=== PATIENT | female | born 1970 | race Caucasian/White ===

== ENCOUNTER → 2018-07-04 14:59 | Outpatient (CLI) | payer OTHER, MEDICAID, SELFPAY ==
[2018-07-04 16:15] LABS: Ethanol (ETOH) < 10 mg/dL
== END ==
PROVIDERS: Visit Provider Physician Assistant
DX: Z02.83 Encounter for blood-alcohol and blood-drug test (principal); Z04.89 Encounter for examination and observation for other specified reasons; R82.5 Elevated urine levels of drugs, medicaments and biological substances
CPT/HCPCS: 36415; 80320; 80361

== ENCOUNTER → 2019-03-21 12:47 | Outpatient (CLI) | payer OTHER, MEDICAID, SELFPAY ==
--- NOTE | 2019-03-21 | DI.MG.S_ITS ---
BILATERAL DIGITAL DIAGNOSTIC MAMMOGRAM 3D/2D WITH AUGMENTATION: 03/21/2019 CLINICAL: BREAST LUMP. Comparison is made to exams dated: 03/24/2015 mammogram - [facility], 11/27/2006 mammogram [facility], and 03/11/2003 mammogram - [facility]. The tissue of both breasts is heterogeneously dense. This may lower the sensitivity of mammography. No significant masses, calcifications, or other findings are seen in either breast. IMPRESSION: INCOMPLETE: NEEDS ADDITIONAL IMAGING EVALUATION There is no abnormality seen in the right breast to correspond with the area of clinical concern and palpable abnormality in the upper outer quadrant, however, ultrasound is recommended. The implants are intact and have a stable appearance. The recommended breast ultrasound is scheduled to immediately follow this examination. This exam was interpreted at Station ID: [id number]. NOTE: For mammograms, a report in lay terms will be sent to the patient. Approximately 15% of breast malignancies will not be visualized mammographically. In the management of a palpable breast mass, a negative mammogram must not discourage biopsy of a clinically suspicious lesion. Electronically Signed By: Art Ardon M.D. aty/:03/21/2019 13:54:59 copy to: Becca Quezada M.D., [employer], ph: [phone], fax: [phone] ACR BI-RADS Category 0: Incomplete 3340F
--- NOTE | 2019-03-21 12:52 | DI.US.S_ITS ---
ULTRASOUND OF RIGHT BREAST: 03/21/2019 CLINICAL: Palpable right breast lumps. Comparison is made to exams dated: 03/21/2019 [facility], 03/24/2015 ultrasound, 03/24/2015 mammogram [facility], and 11/27/2006 [facility]. Real-time ultrasound of the right breast was performed. Castro scale images of the real-time examination were reviewed. No significant abnormalities were seen sonographically in the right breast. Intact right breast implant with several folds noted. No abnormal intracapsular or extracapsular fluid collections. IMPRESSION: BENIGN There is no sonographic evidence of malignancy. There is no abnormality seen in the right breast to correspond with the area of clinical concern and palpable abnormality at 9 o'clock. The right implant is intact and demonstrates several folds at area of palpable concern. No intracapsular or extracapsular fluid collections to suggest implant rupture. Recommend clinical follow up for persistent symptoms. A 1 year screening mammogram is recommended. This exam was interpreted at Station ID: [id number]. Electronically Signed By: Art Ardon M.D. aty/:03/21/2019 14:56:23 copy to: Becca Quezada M.D., [facility] [employer], ph: [phone], fax: [phone] letter sent: Normal Exam Ultrasound BI-RADS: 2 Benign
== END ==
PROVIDERS: Family Provider Family Medicine; PCP Family Medicine; Visit Provider Family Medicine
DX: R92.8 Other abnormal and inconclusive findings on diagnostic imaging of breast (principal); Z98.82 Breast implant status
CPT/HCPCS: 76642; 77066; G0279

== ENCOUNTER → 2019-04-15 14:35 | Outpatient (CLI) | payer OTHER, MEDICAID, SELFPAY ==
--- NOTE | 2019-04-15 14:37 | DI.RAD.S_ITS ---
PROCEDURE: XR CHEST 2V INDICATIONS: diffuse lymphadenopathy TECHNIQUE: 2 views of the chest were acquired. COMPARISON: None. FINDINGS: Surgical changes and devices: None. Lungs and pleura: Lungs are clear. No pleural effusions or pneumothorax. Mediastinum: Mediastinal contours are normal. Heart size is normal. Bones and chest wall: No suspicious bony abnormalities. Soft tissues appear unremarkable. IMPRESSION: No acute disease Dictated by: Lam White M.D. on 04/15/2019 at 15:34 Approved by: Lam White M.D. on 04/15/2019 at 15:35
[2019-04-15 15:53] LABS: Cholesterol 180 mg/dL (140-199); Glucose 122 mg/dL (70-100); HDL Cholesterol 58 mg/dL (40-60); LDL Cholesterol Calculated 109 mg/dL (<100); Triglycerides 63 mg/dL (35-150)
[2019-04-15 15:57] LABS: Hematocrit 36.4 % (36-46); Hemoglobin 12.6 g/dL (12.0-16.0); Mean Corpuscular HGB Conc 34.5 % (30-36); Mean Corpuscular Hemoglobin 32.2 PG (26-34); Mean Corpuscular Volume 93.1 fL (80-100); Platelet Count 163 X10^3/uL (150-400); Red Blood Cell Count 3.91 X10^6/uL (4.0-5.2); Red Cell Distribution Width 13.2 % (11.6-14.8); White Blood Cell Count 5.6 X10^3/uL (4.5-11.0)
[2019-04-15 15:59] LABS: Neutrophils Absolute Manual 2688 /uL (3000-5900); RBC Morphology Normal Morphology; Reactive Lymphocytes 2+; Total Cells Counted 100
[2019-04-18 11:06] LABS: Hemoglobin A1C% w Est Avg Glu 5.6 % (4.0-6.0)
[2019-04-19 15:54] LABS: HIV-1/2 confirmation Not Detected (Not detected)
== END ==
PROVIDERS: PCP Family Medicine; Visit Provider Family Medicine
DX: Z13.220 Encounter for screening for lipoid disorders (principal); Z13.1 Encounter for screening for diabetes mellitus; R59.1 Generalized enlarged lymph nodes; B19.20 Unspecified viral hepatitis C without hepatic coma; F11.10 Opioid abuse, uncomplicated; R73.9 Hyperglycemia, unspecified
CPT/HCPCS: 36415; 71046; 80061; 82947; 83036; 85025; 87522; 87535

== ENCOUNTER → 2019-05-22 08:22 | Outpatient (CLI) | payer OTHER, MEDICAID, SELFPAY ==
--- NOTE | 2019-05-22 08:23 | DI.US.S_ITS ---
PROCEDURE: US SOFT TISSUE HEAD AND NECK INDICATIONS: ENLARGED LYMPH NODES TECHNIQUE: Real-time scanning was performed of the neck region of interest, with image documentation. COMPARISON: None. FINDINGS: Normal appearance of the submandibular gland bilaterally and there are multiple morphologically normal appearing lymph nodes corresponding to the palpable abnormalities. Within the posterior neck, a palpable abnormality corresponds to a bony prominence. IMPRESSION: 1. Normal appearance of the submandibular glands bilaterally and bilateral normal-appearing lymph nodes. Dictated by: Eduardo FRANK Interpreted: Hadley Paz MD on 05/22/2019 at 11:06 Approved by: Hadely Paz M.D. on 05/22/2019 at 12:00
== END ==
PROVIDERS: PCP Family Medicine; Visit Provider Family Medicine
DX: R59.0 Localized enlarged lymph nodes (principal)
CPT/HCPCS: 76536

== ENCOUNTER 2020-01-08 12:52 | Emergency (ER) | payer OTHER, MEDICAID, SELFPAY ==
[2020-01-08 13:07] VITALS: BP 140/94; PULSE 89; RESP 20; O2SAT 97
--- NOTE | 2020-01-08 13:29 | PC.NURSE ---
left facial droop. left eyebrow and forehead paralysis. pt was diagnosed with Coreas's Palsy. pt is requesting medication for her Coreas's Palsy since she never got them filled in [place]
--- NOTE | 2020-01-08 14:15 | ED.NEUROSD ---
HPI - Neuro Symptoms/Deficit <LORIN Evans - Last Filed: 01/08/20 18:39> General Chief Complaint: Neuro Symptoms/Deficit Stated Complaint: half of face is paralyzed/needs medication Time Seen by Provider: 01/08/20 13:21 Source: patient Mode of arrival: Ambulatory Limitations: no limitations History of Present Illness HPI Narrative: The patient is a 49-year-old female former smoker with history of heroin and alcohol abuse who presents with a chief complaint of needing medications refilled. She states that she was recently in [place] for fiber 6 weeks. She was seen at [facility], for facial paralysis of her left side. She was admitted to the hospital, diagnosed with Coreas's palsy. She was given prescriptions, but was unable to fill her acyclovir due to cost outside of the state. She states that her insurance would not cover it is well outside of the [facility]. She presents to the emergency department requesting this medication. She states that she had a thorough evaluation in [place], including CTs, MRIs etcetera. She is also concerned about her blood pressure as well. She has been on clonidine before she states for blood pressure or anxiety or detox. She states that she has been out of that medication for 4 weeks prior to her trip, then she was given a 5 day prescription when she was discharged from [facility] in [place]. She states that her Croeas's palsy is the same, she denies any focal weakness or any other complaints. On Anticoagulants: No Related Data Previous Rx's Medication Instructions Recorded triamcinolone acetonide 0.5 % 1 applictn TOP BID #15 gram 10/24/18 topical ointment valacyclovir 1,000 mg PO TID 7 Days #21 tab 01/08/20 Allergies Allergy/AdvReac Type Severity Reaction Status Date / Time cephalexin [CEPHALEXIN] Allergy Unknown Verified 05/21/19 14:07 hydrocodone [HYDROCODONE] Allergy Unknown Verified 05/21/19 14:07 Review of Systems <LORIN Evans - Last Filed: 01/08/20 18:39> Review of Systems Narrative: GENERAL: Denies chills, fatigue, malaise, fever, sweats. HEENT: Denies sinus pain, ear pain, sore throat, difficulty swallowing, dizziness. RESPIRATORY: Denies dyspnea, cough, wheezing, hemoptysis, sputum. CARDIOVASCULAR: Denies chest pain, palpitations, orthopnea, edema, GASTROINTESTINAL: Denies nausea, vomiting, abdominal pain, diarrhea, constipation, melena. : Denies dysuria, frequency, incontinence, hematuria, urinary retention. MUSCULOSKELETAL: denies weakness, joint pain, or bony pain SKIN: Denies rash, skin lesions, or other NEUROLOGIC: Denies weakness, headache, numbness, change in speech, confusion, seizures, incoordination. PSYCHIATRIC: No concerning psychosocial issues. 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 Normocephalic. No temporal or scalp tenderness. Left-sided facial droop, left eye brow and forehead paralysis. EYES: Pupils equal round and reactive. Extraocular motions intact. No scleral icterus. No injection or drainage. Patient is able to fully close both eyes. ENT: Nose without bleeding, purulent drainage or septal hematoma. Throat without erythema, tonsillar hypertrophy or exudate. Uvula midline. Airway patent. NECK: Trachea midline. No JVD or lymphadenopathy. Supple, nontender, no meningeal signs. CARDIOVASCULAR: Regular rate and rhythm RESPIRATORY: Clear to auscultation. Breath sounds equal bilaterally. No wheezes, rales, or rhonchi. No cough. No increased respiratory effort. No accessory muscle use. GASTROINTESTINAL: Abdomen soft, non-tender, nondistended. No hepato-splenomegaly, or palpable masses. No guarding. EXTREMITIES: No clubbing, cyanosis, or edema. No joint tenderness, effusion, or edema noted. BACK: Nontender without deformity or crepitance. No flank tenderness. NEURO: AOx3. See had an eye exam. Strength is equal upper and lower extremities bilaterally. Finger-nose test intact. Should heal test intact. Follows commands. SKIN: No rash or erythema on visible skin Initial Vital Signs Initial Vital Signs: Vital Signs Pulse Rate 89 01/08/20 13:07 Respiratory Rate 20 01/08/20 13:07 Blood Pressure 140/94 H 01/08/20 13:07 Pulse Oximetry 97 01/08/20 13:07 <Britney Spivey DO - Last Filed: 01/13/20 08:00> Initial Vital Signs Initial Vital Signs: Vital Signs Pulse Rate 89 01/08/20 13:07 Respiratory Rate 20 01/08/20 13:07 Blood Pressure 140/94 H 01/08/20 13:07 Pulse Oximetry 97 01/08/20 13:07 Scores <LORIN Evans - Last Filed: 01/08/20 18:39> GCS Santosh coma scale eye opening: Spontaneous [place] coma scale verbal response: Orientated [place] coma scale motor response: Obey commands Santosh coma scale total score: 15 Course <LORIN Evans - Last Filed: 01/08/20 18:39> Vital Signs Vital signs: Vital Signs - 8 hr 01/08/20 13:07 01/08/20 15:54 Pulse Rate 89 63 Respiratory Rate 20 16 Blood Pressure 140/94 H 128/74 Pulse Oximetry 97 100 <Britney Spivey DO - Last Filed: 01/13/20 08:00> Vital Signs Vital signs: Vital Signs - 8 hr 01/08/20 13:07 01/08/20 15:54 Pulse Rate 89 63 Respiratory Rate 20 16 Blood Pressure 140/94 H 128/74 Pulse Oximetry 97 100 MDM - Neuro Symptoms/Deficit <CADY Evans - Last Filed: 01/08/20 18:39> Lab Data Labs: Lab Results 01/08/20 Range/Units 15:35 COVID-19 PCR Not detected (Not Detected) MDM Narrative Medical decision making narrative: The patient is a 49-year-old female with history of Coreas's palsy who presents with a chief complaint of needing her medications. She was unable to fill them at the pharmacy out of state due to insurance reasons and cost. We requested records from her outpatient facility, [facility] in [place] many times and were unable to obtain records. The patient wanted to leave prior to me being able to review her medical records. Discussed that that is high risk as I cannot confirm that the proper workup was done. The patient is adamant that she receive CTs, MRI etcetera and wants to leave. I did place the patient on no steroids as well as well valacyclovir. The patient was referred skin clonidine for her blood pressure, but her SBP was noted to be in the 140s, so I do not want to initiate hypertensive therapy at this point time. I discussed use of lubricating eyedrops, the importance of following up with primary care provider in the next few days. Patient has no questions or concerns upon discharge and states understanding return precautions as well as follow-up care. Prednisone was dosed as per up-to-date recommendations, as well as valacyclovir. Given that the patient was concerned about coronavirus exposure at the hospital in [place], we did test her for that. Discussed that we will call her with results if they are positive or negative. Patient has no questions or concerns upon discharge and states understanding of return precautions as well as follow-up care. <Britney Spivey, DO - Last Filed: 01/13/20 08:00> Lab Data Labs: Lab Results 01/08/20 Range/Units 15:35 COVID-19 PCR Not detected (Not Detected) Discharge Plan Departure Patient Disposition: Home Clinical Impression: Coreas's palsy, Exposure to COVID-19 virus Discharge Date/Time: 01/08/20 15:40 Instructions: DI for Mcgregor Palsy, Coreas's Palsy (Alternative Therapy), DI for COVID-19 (Suspected or Confirmed ) Activity Restrictions/Additional Instructions: Thank you for trusting us with your care today. Unfortunately we were unable to obtain records from the hospital in [place]. As discussed, this means that I cannot evaluate their imaging and the results. However, he states they have done CTs, MRIs and blood work. I sent two prescriptions to [facility] in [place]. This includes antivirals, steroids. Your blood pressure is not extremely elevated in the emergency department. Please follow-up with primary care provider regarding this. I also suggest using artificial tears 4 times a day or up to hourly. Please follow-up with primary care provider in the next few days. As discussed given your concern about cope at exposure at the hospital in [place], we have swabbed you for coronavirus. We will call you with the results come in, whether they are positive or negative. Please act as though you are sick and self quarantine until we get these results. Prescriptions: New valacyclovir 1 gram tablet 1,000 mg PO TID 7 Days Qty: 21 RF: 0 No Action triamcinolone acetonide 0.5 % ointment 1 applictn TOP BID Qty: 15 RF: 2 Referrals: Becca Quezada MD [Primary Care Provider] - <Britney Spivey DO - Last Filed: 01/13/20 08:00> Cosign ED Attending Duaneature Attestation: I was immediately available in the department for consultation. Documentation has been reviewed. I agree with assessment and plan.
[2020-01-08 15:54] VITALS: BP 128/74; PULSE 63; RESP 16; O2SAT 100
[2020-01-09 18:07] LABS: COVID19 Sendout Not Detected (Not Detected)
== END 2020-01-08 15:40 | disposition home or self-care (01) ==
PROVIDERS: Emergency Provider Nurse Practitioner Family; PCP Family Medicine
DX: G51.0 Bell's palsy (principal); Z20.828 Contact with and (suspected) exposure to other viral communicable diseases
CPT/HCPCS: 87635; 99281; 99282

== ENCOUNTER → 2020-03-04 14:11 | Outpatient (CLI) | payer OTHER, MEDICAID, SELFPAY ==
--- NOTE | 2020-03-04 14:41 | DI.MG.S_ITS ---
Patient Name: PIEDAD STEWART date: 1970 Sex: F Attending Physician: Damien Indications: Date: 03/04/2020 14:18 At the request of: BECCA QUEZADA Procedure: MM diagnostic mammo implant BI BILATERAL DIGITAL DIAGNOSTIC MAMMOGRAM 3D/2D WITH AUGMENTATION: 03/04/2020 CLINICAL: Right breast lump. [facility] is made to [facility]: [facility], 03/[facility]2015 [facility], 11/27/2006 [facility], and 03/11/2003 mammogram [facility]. The tissue of both breasts is heterogeneously dense. This may lower the sensitivity of mammography. No significant masses, calcifications, or other findings are seen in either breast. Intact bilateral implants. IMPRESSION: INCOMPLETE: NEEDS ADDITIONAL IMAGING EVALUATION No abnormality in the right breast to correspond with the palpable abnormality in the upper outer quadrant. However, ultrasound is recommended and was scheduled to immediately follow this examination. This exam was interpreted at Station ID: [id number]. NOTE: For mammograms, a report in lay terms will be sent to the patient. Approximately 15% of breast malignancies will not be visualized mammographically. In the management of a palpable breast mass, a negative mammogram must not discourage biopsy of a clinically suspicious lesion. Electronically Signed By: Samuel Werner M.D. jr/:03/04/2020 15:03:08 copy to: Becca Quezada M.D., [facility] [employer], ph: [phone], fax: [phone] ACR BI-RADS Category 0: Incomplete 3340F
--- NOTE | 2020-03-04 15:13 | DI.US.S_ITS ---
Patient Name: PIEDAD STEWART date: 1970 Sex: F Attending Physician: Damien Indications: Date: 03/04/2020 15:22 At the request of: BECCA MURILLO Procedure: US breast RT limited ULTRASOUND OF RIGHT BREAST: 03/04/2020 CLINICAL: Palpable right breast lump. Comparison is made to exams dated: 03/04/2020 mammogram, 03/21/2019 ultrasound, 03/21/2019 mammogram - [facility], 03/24/2015 ultrasound, 03/24/2015 mammogram - [facility], and 11/27/2006 mammogram - [facility]. Color flow and real-time ultrasound of the right breast were performed. Castro scale images of the realtime examination were reviewed. In the right axilla, at the palpable area of concern, there is a hyperechoic lesion (equal echogenicity to the adjacent fat), which appears well encapsulated and is consistent with a lipoma. This measures approximately 3 cm in maximum dimension. IMPRESSION: BENIGN There is no sonographic evidence of malignancy. Return to annual mammogram screening schedule is recommended. This exam was interpreted at Station ID: [id number]. Electronically Signed By: Samuel Werner M.D. jr/:03/04/2020 16:23:29 copy to: Becca Murillo M.D., [facility], ph: [phone], fax: letter sent: Normal Exam Ultrasound BI-RADS: 2 Benign
== END ==
PROVIDERS: PCP Family Medicine; Referring Provider Family Medicine; Visit Provider Family Medicine
DX: R92.8 Other abnormal and inconclusive findings on diagnostic imaging of breast (principal); N63.31 Unspecified lump in axillary tail of the right breast
CPT/HCPCS: 76642; 77066; G0279

== ENCOUNTER → 2020-03-11 10:57 | Outpatient (CLI) | payer OTHER, MEDICAID, SELFPAY ==
--- NOTE | 2020-03-11 11:11 | DI.CT.S_ITS ---
PROCEDURE: CT CHEST W CON INDICATIONS: f/u lung nodule TECHNIQUE: After the administration of intravenous contrast, 5 mm thick sections acquired from the pulmonary apices to the posterior costophrenic angles. 1 mm axial lung, 5 mm thick coronal and sagittal reformats and 7 mm axial MIP were acquired. For radiation dose reduction, the following was used: automated exposure control, adjustment of mA and/or kV according to patient size. COMPARISON: Outside Facility, RG, XR CXR 2V, 12/28/2019, 15:41. FINDINGS: Image quality: Excellent. Lungs and pleura: Lobulated noncalcified right upper lobe pulmonary nodule measuring 8 mm. It is likely similar in size the outside chest films from 12/28/19. Reference image 139/2. No acute air space opacities. No pleural effusions or pneumothorax. Central and peripheral airways are patent and normal in caliber. Mediastinum: Heart size is normal. No pericardial effusion. No mediastinal or hilar adenopathy by size criteria. Thoracic aorta and central pulmonary arteries are normal in size. Esophagus is normal in caliber. No hiatal hernia. Bones and chest wall: No suspicious bony lesions. No vertebral body compression fractures. No axillary or supraclavicular adenopathy by size criteria. Thyroid gland is unremarkable as visualized. Abdomen: Visualized upper abdominal solid organs appear normal. Upper abdominal bowel loops are normal in caliber. IMPRESSION: 1. Solitary, lobulated noncalcified 8 mm right upper lobe pulmonary nodule. Please see chart below for follow-up recommendations. Fleischner Society criteria for SOLID lung nodule followup. Nodule size (mm)Low-risk patientHigh-risk patient<6 (single or multiple)No routine followup.Optional CT at 12 months. 6-8 (single or multiple)CT at 6-12 months, then optional CT at 18-24 mo.CT at 6-12 months, then CT at 18-24 months. >8 (single)CT at 3 months, PET-CT, or biopsy. Same as for low-risk pts. >8 (multiple)CT at 3-6 months, then optional CT at 18-24 mo.CT at 3-6 months, then CT at 18-24 months. Fleischner Society criteria for SUB-SOLID lung nodule followup. Solitary pure ground-glass nodules<6 mm (ground glass or part solid)No followup needed. 6 mm or larger (ground glass)CT at 6-12 months to confirm persistence, then CT every 2 years until 5 years.6 mm or larger (part solid)CT at 3-6 months to confirm persistence, then annual CT until 5 years if unchanged and solid component remains <6 mm. Multiple sub-solid nodules<6 mmCT at 3-6 months, then CT consider at 2 & 4 years for high risk patients. [address] at 3-6 months. Subsequent management based on most suspicious lesions. Recommendations do not apply to lung cancer screening, patients with immunosuppression, or patients with known primary cancer. Dictated by: Sunny Falcon M.D. on 03/11/2020 at 11:55 Approved by: Sunny Falcon M.D. on 03/11/2020 at 12:00
== END ==
PROVIDERS: PCP Family Medicine; Referring Provider Family Medicine; Visit Provider Family Medicine
DX: R91.1 Solitary pulmonary nodule (principal)
CPT/HCPCS: 71260; Q9967

== ENCOUNTER → 2020-09-16 13:43 | Outpatient (CLI) | payer OTHER, MEDICAID, SELFPAY ==
--- NOTE | 2020-09-16 13:44 | DI.CT.S_ITS ---
PROCEDURE: CT CHEST WO CON INDICATIONS: 6 mos f/u TECHNIQUE: Noncontrast 2.0-2.5 mm thick sections acquired from the pulmonary apices to the posterior costophrenic angles. 7 mm thick axial MIP and 5 mm coronal and sagittal reformats were then acquired. A low radiation dose technique was utilized. COMPARISON: [facility], CT, CT CHEST W CON, 03/11/2020, 11:10. FINDINGS: Image quality: Diagnostic, given the low radiation dose technique. Lungs and pleura: The ovoid right upper lobe nodule may have a small amount of peripheral calcification, and measures 6 x 8 mm equivalent to that seen 03/11/20. No additional new nodule has developed elsewhere. This structure is best seen on series 3, image 121. Mediastinum: Heart size is normal. No pericardial effusion. No mediastinal adenopathy by size criteria. Thoracic aorta and central pulmonary arteries are normal in size. Esophagus is normal in caliber. No hiatal hernia. Bones and chest wall: No suspicious bony lesions. No vertebral body compression fractures. No axillary or supraclavicular adenopathy by size criteria. Thyroid gland is not well seen. Abdomen: Visualized upper abdomen solid organs and bowel loops appear normal in the absence of contrast. IMPRESSION: The single pulmonary nodule initially seen 03/18/20 has not enlarged over the prior thin 6 months. This is measured at currently 6 x 8 mm and is seen at the right upper lobe axial level of the [place]. Follow-up in 1 year is recommended from now, utilizing low-dose noncontrast CT technique. Assuming the structure remains stable at that point in time no additional follow-up likely would be necessary. Fleischner Society criteria for SOLID lung nodule followup. Nodule size (mm)Low-risk patientHigh-risk patient<6 (single or multiple)No routine followup.Optional CT at 12 months. 6-8 (single or multiple)CT at 6-12 months, then optional CT at 18-24 mo.CT at 6-12 months, then CT at 18-24 months. >8 (single)CT at 3 months, PET-CT, or biopsy. Same as for low-risk pts. >8 (multiple)CT at 3-6 months, then optional CT at 18-24 mo.CT at 3-6 months, then CT at 18-24 months. Fleischner Society criteria for SUB-SOLID lung nodule followup. Solitary pure ground-glass nodules<6 mm (ground glass or part solid)No followup needed. 6 mm or larger (ground glass)CT at 6-12 months to confirm persistence, then CT every 2 years until 5 years.6 mm or larger (part solid)CT at 3-6 months to confirm persistence, then annual CT until 5 years if unchanged and solid component remains <6 mm. Multiple sub-solid nodules<6 mmCT at 3-6 months, then CT consider at 2 & 4 years for high risk patients. [address] at 3-6 months. Subsequent management based on most suspicious lesions. Recommendations do not apply to lung cancer screening, patients with immunosuppression, or patients with known primary cancer. Dictated by: Paul Villaseñor M.D. on 09/16/2020 at 16:16 Approved by: Paul Villaseñor M.D. on 09/16/2020 at 16:22
== END ==
PROVIDERS: PCP Family Medicine; Referring Provider Family Medicine; Visit Provider Family Medicine
DX: R91.1 Solitary pulmonary nodule (principal)
CPT/HCPCS: 71250

== ENCOUNTER 2021-11-07 18:33 | Emergency (ER) | payer OTHER, MEDICAID, SELFPAY ==
[2021-11-07 18:40] VITALS: BP 184/95; PULSE 95; RESP 18; TEMP 36.6; O2SAT 98; BMI 21.9
--- NOTE | 2021-11-07 19:37 | PC.NURSE ---
Pt very tearful, reports chronic fungal and bacterial skin infections since the of her son 10 month ago. Presents today with new itchy bumps to palms of hands. States that some of them progress to raised pustules which then open. She lifted a bandaid to show me a dime-sized wound covered in yellow exudate, she indicated this is the typical progression of her symptoms. She has already taken multiple courses of antibiotics.
--- NOTE | 2021-11-07 20:53 | ED.SKABFB ---
HPI - Skin/Abscess/Foreign Bdy <Wanda Aguirre PA-C - Last Filed: 11/07/21 21:08> General Chief complaint: Skin/Abscess/Foreign Body Stated complaint: Rash on hands and feet and legs Time Seen by Provider: 11/07/21 19:03 Source: patient Mode of arrival: Ambulatory History of Present Illness HPI narrative: Patient is a 51-year-old female presenting with a new onset rash on her hands and feet. She states that the rash developed 1 week ago, is itchy, painful, and is worsening. She has been applying topical trying and triamcinolone and mupirocin cream. She also reports numerous dermatological conditions with multiple recurrent staph infections. She has been seen in the past for her recurring skin infections and has been treated with clindamycin and Bactrim in the past. She has an appointment with a spacecraft systems engineer in January. She is tearful and exhibiting some emotional stress. She has a history of IVDU and reports she has not used for the past year and a half. Her main concern is wanting to know if her new rashes contagious her in a as her has stage IV cancer and is undergoing chemotherapy with a compromised immune system. Related Data Previous Rx's Medication Instructions Recorded ketoconazole 2 % shampoo 1 applic TOPICAL 2XW #120 ml 01/08/21 clonidine HCl 0.1 mg tablet 0.1 mg PO TID PRN #30 tab 02/10/21 lorazepam 1 mg tablet 1 mg PO BEDTIME PRN #12 tab 02/10/21 clonazepam 1 mg tablet 1 mg PO BEDTIME #30 tab 02/12/21 lisinopril 5 mg tablet 5 mg PO DAILY #30 tab 03/09/21 Allergies Allergy/AdvReac Type Severity Reaction Status Date / Time cephalexin [CEPHALEXIN] Allergy Unknown Verified 11/07/21 19:05 hydrocodone [HYDROCODONE] Allergy Unknown Verified 11/07/21 19:05 Review of Systems <Wanda Aguirre PA-C - Last Filed: 11/07/21 21:08> Review of Systems Narrative: GENERAL: Denies fatigue, fever, or chills HEENT: Denies ear pain, vision changes, sore throat, or difficulty swallowing RESPIRATORY: Denies shortness of breath, cough, or wheezing CARDIOVASCULAR: Denies chest pain, pressure, palpitations, or edema GASTROINTESTINAL: Denies, nausea, vomiting, changes in bowel movements, or abdominal pain : Denies dysuria, frequency, hematuria, or flank pain MUSCULOSKELETAL: Denies weakness, arthralgias, or myalgias SKIN: See HPI. NEUROLOGIC: Denies weakness, dizziness, headache, numbness, tingling or confusion PSYCHIATRIC: Reports stress and anxiety Patient History <Wanda Aguirre PA-C - Last Filed: 11/07/21 21:08> Medical History ADD (attention deficit disorder) Hepatitis C Heroin abuse Hx of intravenous drug use in remission Surgical History S/P hysterectomy Social History Smoking Status: Former smoker Smoking Status: Former smoker alcohol intake frequency: 0-2 drinks per day Substance Use Type: former substance user Exam <Wanda Aguirre PA-C - Last Filed: 11/07/21 21:08> Narrative Exam Narrative: GENERAL: 51 year old patient appears stated age. Well-developed patient, in mild distress. HEAD: Atraumatic. Normocephalic. EYES: Pupils equal round and reactive. Extraocular motions intact. No scleral icterus. No injection or drainage. ENT: Nose without bleeding, purulent drainage. Throat without erythema, tonsillar hypertrophy or exudate. Airway patent. NECK: Trachea midline. Non tender CARDIOVASCULAR: Regular rate and rhythm without murmurs, gallops, or rubs. RESPIRATORY: Clear to auscultation. Breath sounds equal bilaterally. No wheezes, rales, or rhonchi. GASTROINTESTINAL: Abdomen soft, non-tender, nondistended. EXTREMITIES: No edema or joint tenderness. BACK: Nontender without deformity or crepitance. No flank tenderness. NEURO: AOx3. SKIN: Multiple chronic skin ulcerations and excoriations on her face, bilateral hands, and bilateral upper extremity of various degrees of healing, Mildly erythematous papular rash on bilateral palms and top of feet bilaterally. Initial Vital Signs Initial Vital Signs: Vital Signs Temperature 97.9 F 11/07/21 18:40 Pulse Rate 95 H 11/07/21 18:40 Respiratory Rate 18 11/07/21 18:40 Blood Pressure 184/95 H 11/07/21 18:40 Pulse Oximetry 98 11/07/21 18:40 <Devon Tariq DO - Last Filed: 11/08/21 01:26> Initial Vital Signs Initial Vital Signs: Vital Signs Temperature 97.9 F 11/07/21 18:40 Pulse Rate 95 H 11/07/21 18:40 Respiratory Rate 18 11/07/21 18:40 Blood Pressure 184/95 H 11/07/21 18:40 Pulse Oximetry 98 11/07/21 18:40 Course <Wanda Aguirre PA-C - Last Filed: 11/07/21 21:08> Vital Signs Vital signs: Vital Signs - 8 hr 11/07/21 18:40 Temperature 97.9 F Pulse Rate 95 H Respiratory Rate 18 Blood Pressure 184/95 H Pulse Oximetry 98 <Devon Tariq DO - Last Filed: 11/08/21 01:26> Vital Signs Vital signs: Vital Signs - 8 hr 11/07/21 18:40 Temperature 97.9 F Pulse Rate 95 H Respiratory Rate 18 Blood Pressure 184/95 H Pulse Oximetry 98 MDM - Skin/Abscess/Foreign Bdy <Wanda Aguirre PA-C - Last Filed: 11/07/21 21:08> MDM Narrative Medical decision making narrative: Patient is a 51-year-old female presenting with a new onset rash on her hands and feet. Physical exam showed multiple chronic skin ulcerations and excoriations on her face, bilateral hands, and bilateral upper extremity of various degrees of healing. She also had a mildly erythematous papular rash on bilateral palms and top of feet bilaterally. I am unsure the etiology of her new onset rash, and this is likely not something we will be able to diagnose in the ER. We discussed with patient that oral steroids could worsen her staph related skin ulcerations and excoriations. We advised her to start an oral antihistamine that will hopefully help her new onset rash. We also sent a copy of her visit to Dr. Loja in hopes of getting the patient in with dermatology sooner than January. Patient verbalized understanding and agreed with plan. Findings and discharge diagnosis discussed with patient/family followed by verbalization of understanding Return precautions discussed with patient/family whom verbalize understanding. Discharge Plan Departure Patient Disposition: Home Clinical Impression: Skin rash Instructions: DI for Rash Activity Restrictions/Additional Instructions: *You have been diagnosed with a skin rash. It is best for this rash to be seen by a spacecraft systems engineer for proper evaluation and management, and we have sent today's visit to a spacecraft systems engineer for review. You can also take an [id number] antihistamine to help this rash until you are able to be seen by specialist. If symptoms worsen or you experience any new concerns please come back to the ER. *What to do: *Please continue to take your regular medications as directed. [ ] New medication prescriptions sent to your pharmacy: [ ] [ ] New medication written as a paper prescription [X] No new medications given *Please follow up with your primary care provider in 2-3 days, call for an appointment. Let them know you were seen in the Emergency Department and that we ask that you be seen in follow up. We will electronically transmit a record of today's note if your PCP is in our system *If you do not have a primary care provider please contact the [facility] at [phone] and they can help get you set up with a doctor in the community. *Return to Emergency Department if you should have any new, worsening or concerning symptoms, such as [fever greater than 101 F, shaking chills, worsening pain, persistent vomiting or other bothersome symptoms] Prescriptions: No Action ketoconazole 2 % shampoo 1 applic topical 2XW Qty: 120 2RF clonidine HCl 0.1 mg tablet 0.1 mg PO TID PRN (Reason: anxiety) Qty: 30 0RF lorazepam 1 mg tablet 1 mg PO BEDTIME PRN (Reason: anxiety) Qty: 12 0RF Rx Instructions: Please take for anxiety when you are trying to go to sleep. clonazepam 1 mg tablet 1 mg PO BEDTIME Qty: 30 0RF Rx Instructions: administer 30 minutes before bedtime lisinopril 5 mg tablet 5 mg PO DAILY Qty: 30 3RF Referrals: Claudette Loja MD [Physician] - Miscellaneous,MD Hola [Primary Care Provider] - <Devon Tariq DO - Last Filed: 11/08/21 01:26> Sign Out Provider Sign Out Attestation: I was immediately available in the department for consultation. This documentation has been reviewed and I agree with assessment and plan. Supervised by Devon Tariq DO
== END 2021-11-07 20:20 | disposition home or self-care (01) ==
PROVIDERS: Emergency Provider Physician Assistant
DX: R21 Rash and other nonspecific skin eruption (principal)
CPT/HCPCS: 99281